=== PATIENT | male | born 1945 | race Caucasian/White ===

== ENCOUNTER 2018-08-25 08:23 | Outpatient (RCR) | payer MEDICARE, OTHER | END 2018-08-27 15:21 | disposition home or self-care (01) | LOC: OPPGERO 08:23 | DX: F41.9 Anxiety disorder, unspecified (principal); M48.00 Spinal stenosis, site unspecified; I27.20 Pulmonary hypertension, unspecified; J45.909 Unspecified asthma, uncomplicated; G47.33 Obstructive sleep apnea (adult) (pediatric); I10 Essential (primary) hypertension; I48.91 Unspecified atrial fibrillation; I82.519 Chronic embolism and thrombosis of unspecified femoral vein; Z86.39 Personal history of other endocrine, nutritional and metabolic disease; Z86.59 Personal history of other mental and behavioral disorders ==

== ENCOUNTER 2018-08-30 09:10 | Outpatient (RCR) | payer MEDICARE, OTHER | END 2018-09-28 14:37 | disposition still patient (30) | LOC: OPPGERO 09:10 | DX: F41.9 Anxiety disorder, unspecified (principal); R45.4 Irritability and anger ==

== ENCOUNTER 2018-09-29 08:39 | Outpatient (RCR) | payer MEDICARE, OTHER | END 2018-10-29 13:31 | LOC: OPPGERO 08:39 | DX: F41.9 Anxiety disorder, unspecified (principal); I27.20 Pulmonary hypertension, unspecified; J45.909 Unspecified asthma, uncomplicated; I10 Essential (primary) hypertension; I48.91 Unspecified atrial fibrillation; I82.519 Chronic embolism and thrombosis of unspecified femoral vein ==

== ENCOUNTER 2018-11-01 09:11 | Outpatient (RCR) | payer MEDICARE, OTHER | END 2018-11-26 14:41 | LOC: OPPGERO 09:11 | DX: F41.9 Anxiety disorder, unspecified (principal); Z79.899 Other long term (current) drug therapy; M48.00 Spinal stenosis, site unspecified; J45.909 Unspecified asthma, uncomplicated; I10 Essential (primary) hypertension; I48.91 Unspecified atrial fibrillation; I82.519 Chronic embolism and thrombosis of unspecified femoral vein ==

== ENCOUNTER 2018-11-29 09:35 | Outpatient (RCR) | payer MEDICARE, OTHER | END 2018-12-29 17:26 | LOC: OPPGERO 09:35 | DX: F41.9 Anxiety disorder, unspecified (principal); I27.20 Pulmonary hypertension, unspecified; J45.909 Unspecified asthma, uncomplicated; I10 Essential (primary) hypertension; I48.91 Unspecified atrial fibrillation; I82.519 Chronic embolism and thrombosis of unspecified femoral vein; F10.21 Alcohol dependence, in remission; Z86.39 Personal history of other endocrine, nutritional and metabolic disease ==

== ENCOUNTER 2018-12-30 09:29 | Outpatient (RCR) | payer MEDICARE, OTHER | END 2019-01-28 12:57 | LOC: OPPGERO 09:29 | DX: F41.9 Anxiety disorder, unspecified (principal); I27.20 Pulmonary hypertension, unspecified; J45.909 Unspecified asthma, uncomplicated; M48.00 Spinal stenosis, site unspecified; I10 Essential (primary) hypertension; I48.91 Unspecified atrial fibrillation; F10.20 Alcohol dependence, uncomplicated; I82.519 Chronic embolism and thrombosis of unspecified femoral vein ==

== ENCOUNTER 2019-01-30 16:41 | Outpatient (RCR) | payer MEDICARE, OTHER | END 2019-02-28 14:02 | disposition still patient (30) | LOC: OPPGERO 16:41 | DX: F41.9 Anxiety disorder, unspecified (principal); M48.00 Spinal stenosis, site unspecified; I27.20 Pulmonary hypertension, unspecified; J45.909 Unspecified asthma, uncomplicated; I10 Essential (primary) hypertension; I48.91 Unspecified atrial fibrillation; Z79.82 Long term (current) use of aspirin; Z79.51 Long term (current) use of inhaled steroids ==

== ENCOUNTER 2019-03-01 11:34 | Outpatient (RCR) | payer MEDICARE, OTHER | END 2019-03-31 15:26 | disposition home or self-care (01) | LOC: OPPGERO 11:34 | DX: F41.9 Anxiety disorder, unspecified (principal); M48.00 Spinal stenosis, site unspecified; I27.20 Pulmonary hypertension, unspecified; J45.909 Unspecified asthma, uncomplicated; I10 Essential (primary) hypertension; I48.91 Unspecified atrial fibrillation; I82.519 Chronic embolism and thrombosis of unspecified femoral vein; Z79.51 Long term (current) use of inhaled steroids; Z79.1 Long term (current) use of non-steroidal anti-inflammatories (NSAID); Z86.59 Personal history of other mental and behavioral disorders ==

== ENCOUNTER 2019-04-01 08:50 | Outpatient (RCR) | payer MEDICARE, OTHER | END 2019-04-27 14:32 | disposition still patient (30) | LOC: OPPGERO 08:50 | DX: F41.9 Anxiety disorder, unspecified (principal); I27.20 Pulmonary hypertension, unspecified; J45.909 Unspecified asthma, uncomplicated; I48.91 Unspecified atrial fibrillation; I82.519 Chronic embolism and thrombosis of unspecified femoral vein; Z86.39 Personal history of other endocrine, nutritional and metabolic disease; Z86.59 Personal history of other mental and behavioral disorders; Z79.82 Long term (current) use of aspirin; Z79.51 Long term (current) use of inhaled steroids; Z79.899 Other long term (current) drug therapy ==